=== PATIENT | male | born 1985 | race African-American/Black ===

== ENCOUNTER 2017-01-12 00:10 | Emergency (ER) | payer OTHER ==
[~2017-01-12] VITALS: Ht 167.6 cm; Wt 58.5 kg
[2017-01-12 00:19] VITALS: BP 125/67
--- NOTE | 2017-01-12 03:50 | NUR ---
PATIENT LEFT WITHOUT BEING SEEN BY DR. Campbell. NO FURTHER CARE PROVIDED FOR PATIENT.
== END 2017-01-12 03:50 | disposition left against medical advice (07) ==
LOC: MED 00:10
DX: R07.89 Other chest pain (principal); Z53.21 Procedure and treatment not carried out due to patient leaving prior to being seen by health care provider

== ENCOUNTER 2022-01-19 07:23 | Emergency (ER) | payer MEDICAID, OTHER ==
[~2022-01-19] VITALS: Ht 167.6 cm; Wt 53.1 kg
[2022-01-19 07:33] VITALS: BP 108/68
--- NOTE | 2022-01-19 07:35 | NUR ---
PT AMBULATED TO BED 11.
[2022-01-19] MEDS ORDERED: KETOROLAC 60 MG/2 ML VIAL IM ONE (07:50)
--- NOTE | 2022-01-19 08:19 | NUR ---
pt c/o right toe pain s/p kicking a gate. pending xray.
[2022-01-19] MEDS ORDERED: NAPR-54 PO (08:55)
--- NOTE | 2022-01-19 09:02 | NUR ---
PER ERMD, PT RIGHT FOOT DIGITS 3 & 4 PLACED IN KAMRYN TAPE. PT TOLERATED TAPE. ORTHO SHOE SIZE SMALL ALSO GIVEN TO PT AND PLACED ON PT R FOOT. + CMS BEFORE AND AFTER APPLICATION. PT STATED IT WAS THE CORRECT SIZE AND WELL TOLERATED.
--- NOTE | 2022-01-19 09:04 | NUR ---
Patient discharged with v/s stable. Written and verbal after care instructions given and explained. Patient verbalized understanding. Ambulatory with steady gait. All questions addressed prior to discharge. Advised to follow up with PMD.
== END 2022-01-19 09:04 | disposition home or self-care (01) ==
LOC: MED 07:23
DX: S92.511A Displaced fracture of proximal phalanx of right lesser toe(s), initial encounter for closed fracture (principal); F17.200 Nicotine dependence, unspecified, uncomplicated; X58.XXXA Exposure to other specified factors, initial encounter; Y92.89 Other specified places as the place of occurrence of the external cause; Y93.89 Activity, other specified; Y99.8 Other external cause status
CPT/HCPCS: 73610; 73660; 96372; 99284; J1885

== ENCOUNTER 2022-11-11 22:19 | Emergency (ER) | payer OTHER, MEDICAID ==
[~2022-11-11] VITALS: Ht 167.6 cm; Wt 57.6 kg
[~2022-11-11 22:19] MED LIST: NAPR-54 PO
[2022-11-11 22:30] VITALS: BP 115/95
--- NOTE | 2022-11-11 22:33 | NUR ---
TO LOBBY A/W BED AMBULATORY
[2022-11-12] MEDS ORDERED: CODE118S PO (00:36)
[2022-11-12] MEDS ORDERED: BENZ200C4 PO (00:36)
[2022-11-12 00:50] VITALS: BP 115/95
--- NOTE | 2022-11-12 00:50 | NUR ---
Patient discharged with v/s stable. Written and verbal after care instructions given and explained. Patient alert, oriented and verbalized understanding of instructions. Ambulatory with steady gait. All questions addressed prior to discharge. ID band removed. Patient advised to follow up with PMD. Rx of BENZONATATE, GUAIFEN-CODEINE given. Patient educated on indication of medication including possible reaction and side effects. Opportunity to ask questions provided and answered.
== END 2022-11-12 00:50 | disposition home or self-care (01) ==
LOC: MED 22:19
DX: J20.8 Acute bronchitis due to other specified organisms (principal); Z79.899 Other long term (current) drug therapy
CPT/HCPCS: 71045; 99283

== ENCOUNTER 2023-01-02 09:15 | Emergency (ER) | payer OTHER, MEDICAID ==
[~2023-01-02] VITALS: Ht 167.6 cm; Wt 59.0 kg
[~2023-01-02 09:15] MED LIST changes: +BENZ200C4 PO; +CODE118S PO
--- NOTE | 2023-01-02 09:51 | NUR ---
TO CHAIR. PT HAS URINE CUP UNABLE TO PROVIDE URINE AT THIS TIME.
[2023-01-02] MEDS ORDERED: KETOROLAC 30 MG/ML VIAL IM ONE (10:25)
[2023-01-02] MEDS ORDERED: CYCL-711 PO (10:31)
[2023-01-02] MEDS ORDERED: IBUP-2213 PO (10:31)
[2023-01-02] MEDS ORDERED: LID5T TP (10:31)
--- NOTE | 2023-01-02 11:19 | NUR ---
Patient discharged with v/s stable. Written and verbal after care instructions given and explained. Patient verbalized understanding. Ambulatory with steady gait. All questions addressed prior to discharge. Advised to follow up with PMD. PT. STATES FEELING BETTER AFTER IM SHOT FOR PAIN. NO ACUTE DISTRESS. AWAKE AND ALERT. AMB. WITH NO DIFF. STABLE FOR D/C HOME
== END 2023-01-02 11:18 | disposition home or self-care (01) ==
LOC: MED 09:15
DX: S39.012A Strain of muscle, fascia and tendon of lower back, initial encounter (principal); X50.0XXA Overexertion from strenuous movement or load, initial encounter; Y92.89 Other specified places as the place of occurrence of the external cause; Y93.89 Activity, other specified; Y99.0 Civilian activity done for income or pay
CPT/HCPCS: 96372; 99283; J1885

== ENCOUNTER 2024-01-19 13:31 | Emergency (ER) | payer MEDICAID, OTHER ==
[~2024-01-19] VITALS: Ht 167.6 cm; Wt 56.7 kg
[~2024-01-19 13:31] MED LIST changes: +CYCL-711 PO; +IBUP-2213 PO; +LID5T TP; +NAPR-337 PO; -NAPR-54 PO
[2024-01-19 13:33] VITALS: PULSE 79; RESP 20; TEMP 98.1; O2SAT 100
[2024-01-19] MEDS ORDERED: CETI10SG1 PO (14:27)
[2024-01-19] MEDS ORDERED: FLONAS NS (14:27)
== END 2024-01-19 14:33 | disposition home or self-care (01) ==
LOC: MED 13:31
DX: J30.2 Other seasonal allergic rhinitis (principal); Z79.1 Long term (current) use of non-steroidal anti-inflammatories (NSAID); Z79.899 Other long term (current) drug therapy
CPT/HCPCS: 99282

== ENCOUNTER 2024-04-16 10:41 | Emergency (ER) | payer MEDICAID ==
[~2024-04-16] VITALS: Ht 167.6 cm; Wt 57.2 kg
[~2024-04-16 10:41] MED LIST changes: +CETI10SG1 PO; +FLONAS NS
[2024-04-16 11:02] VITALS: BP 130/85; PULSE 102; RESP 20; TEMP 98.7; O2SAT 99
[2024-04-16] MEDS ORDERED: CETI10SG1 PO (11:36)
[2024-04-16] MEDS ORDERED: FLONAS NS (11:36)
--- NOTE | 2024-04-16 12:14 | NUR ---
Patient discharged with v/s stable. Written and verbal after care instructions given FOR ALLERGIC RHINITIS Patient alert, oriented and verbalized understanding of instructions. Ambulatory with steady gait. All questions addressed prior to discharge. ID band removed. Patient advised to follow up with PMD. Rx of ZYRTEC,FLONASE NASAL given. Opportunity to ask questions provided and answered. WORK NOTE PROVIDED
== END 2024-04-16 12:14 | disposition home or self-care (01) ==
LOC: MED 10:41
DX: J30.9 Allergic rhinitis, unspecified (principal); Z79.899 Other long term (current) drug therapy
CPT/HCPCS: 99282

== ENCOUNTER 2024-05-30 11:17 | Emergency (ER) | payer MEDICAID ==
[~2024-05-30] VITALS: Ht 170.2 cm; Wt 54.1 kg
[2024-05-30 11:33] VITALS: BP 118/82; PULSE 71; RESP 18; TEMP 98.5; O2SAT 98
== END 2024-05-30 12:23 | disposition home or self-care (01) ==
LOC: MED 11:17
DX: S01.01XA Laceration without foreign body of scalp, initial encounter (principal); S09.90XA Unspecified injury of head, initial encounter; Z79.899 Other long term (current) drug therapy; X58.XXXA Exposure to other specified factors, initial encounter; Y93.89 Activity, other specified; Y92.89 Other specified places as the place of occurrence of the external cause; Y99.8 Other external cause status
CPT/HCPCS: 99281